=== PATIENT | male | born 1950 | race Caucasian/White ===

== ENCOUNTER 2022-09-07 13:20 | Emergency (ER) | payer BC ==
[~2022-09-07] VITALS: Ht 180.3 cm; Wt 71.8 kg
[~2022-09-07 13:20] MED LIST: FLO0.4C PO; MAGN400T56 PO; OXYB5TAB16 PO; POTA-197 PO
[2022-09-07 13:46] VITALS: BP 116/88
--- NOTE | 2022-09-07 15:42 | NUR ---
pt is 72 yo male recently dc'd from hospital with kumar catheter, pt said he has no urine output since 729 and has drank 2090 ml of fluid today since 729. Pt said he also had home health "but I told him I did not really need him". I explained how home health could benefit him, pt verbalized understanding
--- NOTE | 2022-09-07 16:09 | NUR ---
director of cardiac cath lab at bedside
[2022-09-07] MEDS ORDERED: LIDOcaine 2% 10ml TOPICAL JELLY (Urojet) MM ONE (16:20)
[2022-09-07 16:59] LABS: ALANINE AMINOTRANSFERASE 66 U/L (12-78); ALBUMIN 3.7 G/DL (3.4-5.0); ALBUMIN/GLOBULIN RATIO 1.1 (1.1-1.5); ALKALINE PHOSPHATASE 91 IU/L (46-116); ANION GAP 9 (8-16); ASPARTATE AMINO TRANSFERASE 36 U/L (10-37); BILIRUBIN,TOTAL 0.3 MG/DL (0.1-1.0); BLOOD UREA NITROGEN 43 MG/DL (7-18); BUN/CREATININE RATIO 12.6 (5.4-32.0); CALCIUM 8.5 MG/DL (8.5-10.1); CHLORIDE 102 MMOL/L (99-107); CREATININE 3.41 MG/DL (0.60-1.10); GLUCOSE 122 MG/DL (70-104); POTASSIUM 5.5 MMOL/L (3.5-5.1); SODIUM 134 MMOL/L (135-145); TOTAL CARBON DIOXIDE 23.1 MMOL/L (24-32); TOTAL PROTEIN 7.2 G/DL (6.4-8.2); eGFR 18 ML/MIN
[2022-09-07] MEDS ORDERED: HYDROcodone/acetaminophen 10/325mg tab PO ONE (17:05)
--- NOTE | 2022-09-07 17:38 | NUR ---
inserted coude 16french kumar without complications, initial output 1500ml of slight pink tinged urine, report to Jeimy ARELLANO
== END 2022-09-07 18:29 | disposition home or self-care (01) ==
LOC: ER 13:20
DX: T83.038A Leakage of other urinary catheter, initial encounter (principal); F12.10 Cannabis abuse, uncomplicated; Z87.448 Personal history of other diseases of urinary system; Z88.8 Allergy status to other drugs, medicaments and biological substances; Z79.899 Other long term (current) drug therapy
CPT/HCPCS: 36415; 51702; 80053; 99284; A4340